=== PATIENT | male | born 1995 | race Hispanic/Latino ===

== ENCOUNTER 2019-09-11 09:29 | Emergency (ER) | payer OTHER ==
[2019-09-11] MEDS ORDERED: NACL 0.9% 1000 ML 1,000 ML IV ONE ×2 (09:55→10:29)
--- NOTE | 2019-09-11 10:09 | Emergency Department Report ---
ED General Adult HPI - General Chief complaint: Weakness Stated complaint: SYNCOPE/HEADACHE/DIZZINESS Time Seen by Provider: 09/11/19 09:49 Source: patient Mode of arrival: Stretcher Limitations: No Limitations - History of Present Illness Initial comments: 24-year-old male presents to the emergency room stating that she was drinking last night this morning he got up to take his physical test for the [place] as he was running he felt dizzy. He vomited and passed out. It was reported by one of his colleagues that he was unresponsive for about 4 minutes. Patient reports he got drunk last night and was still feeling bad this morning. Patient denies any headache no nausea and no pain to stenosis week. Patient reports a past medical history of bradycardic with a heart rate is noticed 20 bpm. Patient reports he has been seen by her financial retirement plan specialist and was cleared to Oxynade. It was reported that his vomitus was watery. Patient denies any hematemesis hematochezia. Patient denies any diarrhea no chest pain or abdominal pain no fever no chills no nausea at this time. Patient does report he felt much better after vomiting. -: This morning Severity scale (0 -10): 0 Improves with: other (vomiting) Associated Symptoms: nausea/vomiting (resolved), syncope (times 1 after running with alcohol ), weakness. denies: confusion, chest pain, cough, diaphoresis, fever/chills, headaches, rash, shortness of breath Treatments Prior to Arrival: none - Related Data Allergies Allergy/AdvReac Type Severity Reaction Status Date / Time No Known Allergies Allergy Verified 09/11/19 10:07 ED Review of Systems ROS: Stated complaint: SYNCOPE/HEADACHE/DIZZINESS Other details as noted in HPI Comment: All other systems reviewed and negative Respiratory: denies: cough, shortness of breath, wheezing Cardiovascular: denies: chest pain, palpitations Endocrine: no symptoms reported Gastrointestinal: nausea (resolved), vomiting (resolved) Genitourinary: denies: urgency, dysuria Musculoskeletal: denies: back pain, joint swelling, arthralgia Neurological: weakness. denies: headache Psychiatric: denies: anxiety, depression Hematological/Lymphatic: denies: easy bleeding, easy bruising ED Past Medical Hx - Past Medical History Previous Medical History?: No - Surgical History Past Surgical History?: No - Social History Smoking Status: Never Smoker Substance Use Type: Alcohol ED Physical Exam - General Limitations: No Limitations General appearance: alert, in no apparent distress - Head Head exam: Present: atraumatic, normocephalic - Eye Eye exam: Present: normal appearance - ENT ENT exam: Present: mucous membranes moist - Neck Neck exam: Present: normal inspection ED Course Vital Signs 09/11/19 09/11/19 09/11/19 09:43 09:45 09:54 Temperature 97.4 F L Pulse Rate 79 80 83 Respiratory 13 18 15 Rate Blood Pressure Blood Pressure 109/53 [Left] O2 Sat by Pulse 96 100 Oximetry 09/11/19 09/11/19 09/11/19 10:00 10:15 10:31 Temperature Pulse Rate 80 79 93 H Respiratory 11 L 20 14 Rate Blood Pressure 103/52 103/52 103/52 Blood Pressure [Left] O2 Sat by Pulse 99 98 100 Oximetry 09/11/19 09/11/19 09/11/19 10:45 11:01 11:15 Temperature Pulse Rate 82 84 81 Respiratory 17 12 18 Rate Blood Pressure 49/16 49/16 49/16 Blood Pressure [Left] O2 Sat by Pulse 99 100 99 Oximetry 09/11/19 09/11/19 09/11/19 11:30 11:45 12:01 Temperature Pulse Rate 79 76 85 Respiratory 19 21 15 Rate Blood Pressure 102/46 102/46 102/46 Blood Pressure [Left] O2 Sat by Pulse 99 99 99 Oximetry 09/11/19 09/11/19 09/11/19 12:15 12:30 12:45 Temperature Pulse Rate 83 79 80 Respiratory 21 17 19 Rate Blood Pressure 102/46 100/39 100/39 Blood Pressure [Left] O2 Sat by Pulse 99 100 99 Oximetry ED Medical Decision Making - Lab Data Result diagrams: 09/11/19 10:06 09/11/19 10:06 - Medical Decision Making 24-year-old male presents to the emergency room stating that she was drinking last night this morning he got up to take his physical test for the [place] as he was running he felt dizzy. He vomited and passed out. It was reported by one of his colleagues that he was unresponsive for about 4 minutes. Patient reports he got drunk last night and was still feeling bad this morning. He went for a 1.5 mile run. Patient denies any headache no nausea and no pain to stenosis week. Patient reports a past medical history of bradycardic with a heart rate is noticed 20 bpm. Patient reports he has been seen by her financial retirement plan specialist January 2019 and was cleared to Oxynade. It was reported that his vomitus was watery. Patient denies any hematemesis hematochezia. Patient denies any diarrhea no chest pain or abdominal pain no fever no chills no nausea at this time. Patient does report he felt much better after vomiting. Critical care attestation.: If time is entered above; I have spent that time in minutes in the direct care of this critically ill patient, excluding procedure time. ED Disposition Clinical Impression: Syncopal episodes, Vomiting Disposition: DC-01 TO HOME OR SELFCARE Is pt being admited?: No Does the pt Need Aspirin: No Condition: Stable Instructions: Syncope (ED), At-Risk Alcohol Use (ED) Additional Instructions: No physical training or driving for the next 6 months until cleared by your [facility] care provider. Increase her fluid intake advance your diet as tolerated. Referrals: GARRETT WATLERS MD [Primary Care Provider] - 3-5 Days [facility] [Provider Group] - 3-5 Days [facility] [Provider Group] - 3-5 Days Forms: Work/School Release Form(ED), Accompanied Note
[2019-09-11 10:18] LABS: Basophils % (Auto) 0.3 % (0.0-1.8); Eosinophils % (Auto) 0.2 % (0.0-4.3); Hematocrit 44.9 % (35.5-45.6); Hemoglobin 15.3 gm/dl (11.8-15.2); Lymphocytes % (Auto) 6.9 % (13.4-35.0); Mean Corpuscular HGB Conc 34 % (32-34); Mean Corpuscular Volume 89 fl (84-94); Monocytes # (Auto) 1.3 K/mm3 (0.0-0.8); Monocytes % (Auto) 8.8 % (0.0-7.3); Platelet Count 189 K/mm3 (140-440); Red Blood Count 5.07 M/mm3 (3.65-5.03); Red Cell Distribution Width 13.1 % (13.2-15.2)
[2019-09-11 10:32] LABS: Alanine Aminotransferase 25 units/L (7-56); Albumin 4.9 g/dL (3.9-5); BUN/Creatinine Ratio 13; Blood Urea Nitrogen 17 mg/dL (9-20); Calcium 9.5 mg/dL (8.4-10.2); Hemolysis Index 4
--- NOTE | 2019-09-11 10:35 | Event Note ---
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 Apparently afterwards, got nauseous, threw up, and then had a temporary loss of consciousness. He denies physical pain. He is now back to his baseline. He denies DVT or pulmonary embolism risk factors, he is low risk by well's criteria, and at this point in time, he is perc negative The patient is clinically sober at this time. His physical exam is unremarkable. This is most likely a vagal event secondary to nausea and vomiting, secondary to recent strenuous physical activity. Furthermore, the patient endorses consuming alcohol yesterday at a wedding green party. We've recommended screening laboratory studies and EKG. The patient was counseled to not drive or operate motor vehicles for the next 6 months, or until cleared to do so by her primary care doctor or trench trimmer fine. He is also counseled to refrain from strenuous physical activity unless cleared by primary care doctor or trench trimmer fine. He verbalizes understanding to these instructions. Vital Signs 09/11/19 09:54 Temperature 97.4 F L Pulse Rate 83 Respiratory 15 Rate Blood Pressure 109/53 [Left] O2 Sat by Pulse 100 Oximetry Lab Results 09/11/19 09/11/19 Range/Units 10:06 10:06 WBC 14.6 H (4.5-11.0) K/mm3 RBC 5.07 H (3.65-5.03) M/mm3 Hgb 15.3 H (11.8-15.2) gm/dl Hct 44.9 (35.5-45.6) % MCV 89 (84-94) fl MCH 30 (28-32) pg MCHC 34 (32-34) % RDW 13.1 L (13.2-15.2) % Plt Count 189 (140-440) K/mm3 Lymph % (Auto) 6.9 L (13.4-35.0) % [place] % (Auto) 8.8 H (0.0-7.3) % Eos % (Auto) 0.2 (0.0-4.3) % Baso % (Auto) 0.3 (0.0-1.8) % Lymph # 1.0 L (1.2-5.4) K/mm3 [place] # 1.3 H (0.0-0.8) K/mm3 Eos # 0.0 (0.0-0.4) K/mm3 Baso # 0.0 (0.0-0.1) K/mm3 Seg Neutrophils % 83.8 H (40.0-70.0) % Seg Neutrophils # 12.2 H (1.8-7.7) K/mm3 Sodium 141 (137-145) mmol/L Potassium 4.5 (3.6-5.0) mmol/L Chloride 99.9 (98-107) mmol/L Carbon Dioxide 26 (22-30) mmol/L Anion Gap 20 mmol/L BUN 17 (9-20) mg/dL Creatinine 1.3 (0.8-1.5) mg/dL Estimated GFR > 60 ml/min BUN/Creatinine Ratio 13 % Glucose 97 (75-100) mg/dL Calcium 9.5 (8.4-10.2) mg/dL Total Bilirubin 1.90 H (0.1-1.2) mg/dL AST 33 (5-40) units/L ALT 25 (7-56) units/L Alkaline Phosphatase 61 (35-129) units/L Total Protein 7.8 (6.3-8.2) g/dL Albumin 4.9 (3.9-5) g/dL Albumin/Globulin Ratio 1.7 %
[2019-09-11 11:28] LABS: INR 1.03 (0.87-1.13)
[2019-09-11 13:09] VITALS: BP 117/45
== END 2019-09-11 13:20 | disposition home or self-care (01) ==
LOC: ED 09:29
DX: R55 Syncope and collapse (principal); R11.10 Vomiting, unspecified
CPT/HCPCS: 36415; 80053; 82550; 83735; 84443; 85025; 85610; 93005; 93010; 96360; 99284; J7030; 80320; G0480